=== PATIENT | female | born 1975 | race Caucasian/White ===

== ENCOUNTER 2025-05-27 23:02 | Emergency (ER) | payer OTHER ==
[2025-05-27 23:17] VITALS: BMI 22.1
[2025-05-27] MEDS ORDERED: valACYclovir HCL 500 MG TABLET (FP) ONE (23:51)
[2025-05-27] MEDS ORDERED: predniSONE 20 MG TABLET (UD) ONE (23:51)
[2025-05-27] MEDS: predniSONE 20 MG TABLET (UD) PO ONE (23:56)
[2025-05-27] MEDS: valACYclovir HCL 500 MG TABLET (FP) PO ONE (23:57)
[2025-05-27] MEDS: LACTATED RINGERS SOLUTION 1000 ML INFUS.BAG IV ONE (23:58)
[2025-05-28 00:48] LABS: ABSOLUTE IMMATURE GRANULOCYTES 0.00 x10^3/uL (0.0-0.031); BASOPHILS # 0.03 x10^3/uL (0.01-0.08); EOSINOPHIL % 1.4 % (0.7-5.8); EOSINOPHILS # 0.09 x10^3/uL (0.04-0.36); MCHC 32.7 g/dl (32.2-35.5); MEAN CELL VOLUME 96.4 fl (79.4-94.8); MEAN PLT VOLUME 10.6 fl (9.4-12.3); MONOCYTE # 0.46 x10^3/uL (0.24-0.86); MONOCYTE % 7.4 % (4.7-12.5); RDW 12.2 % (12.3-16.6)
[2025-05-28 00:57] LABS: GLUCOSE,RANDOM 104.0 mg/dL (74-106)
[2025-05-28 00:58] LABS: TOT PROT 6.8 g/dl (6.4-8.2)
[2025-05-28 00:59] LABS: CO2 23.0 mmol/L (21-32)
[2025-05-28 01:00] LABS: ALK PHOS 90.0 U/L (40-150)
[2025-05-28 01:03] LABS: CREATININE 0.98 mg/dL (0.55-1.3); SGOT/AST 26.0 U/L (5-34); SGPT/ALT 24.0 U/L (0-55)
[2025-05-28 01:18] VITALS: BP 108/63; PULSE 72; RESP 18; TEMP 98.1
[2025-05-28 01:23] LABS: HCV DIAGNOSTIC IN-HOUSE W/RFLX NON-REACTIVE (NONREACTIVE)
[2025-05-28 01:24] LABS: HIV INTERPRETATION NEGATIVE (NEGATIVE)
== END 2025-05-28 01:27 | disposition home or self-care (01) ==
LOC: JER 23:02
DX: G51.0 Bell's palsy (principal)
CPT/HCPCS: 36415; 80053; 84703; 85025; 86618; 86803; 87389; 99283-25